=== PATIENT | female | born 2000 | race Caucasian/White ===

== ENCOUNTER 2023-01-16 18:14 | Emergency (ER) | payer SELFPAY ==
[2023-01-16] MEDS ORDERED: Lidocaine 1% with EPINEPHrine 1:100,000 50 ML MDV SUBCUT ONE (18:51)
[2023-01-16] MEDS ORDERED: Bacitracin Oint 1 GM U/D Packet TOP ONE (20:16)
[2023-01-16] MEDS ORDERED: Diphtheria,Pertussis(Acell),Tetanus Vaccine 0.5 ML Syringe IM ONE (20:16)
== END 2023-01-16 21:02 | disposition home or self-care (01) ==
LOC: JP.ED 18:14
DX: S81.012A Laceration without foreign body, left knee, initial encounter (principal); Z23 Encounter for immunization; W18.30XA Fall on same level, unspecified, initial encounter
CPT/HCPCS: 12002; 90471; 90715; 99282-25